=== PATIENT | male | born 1945 | race Caucasian/White ===

== ENCOUNTER 2018-08-19 10:57 | Inpatient (IN) | payer OTHER ==
--- NOTE | 2018-08-19 11:43 | PDOC ---
History of Present Illness - General Chief Complaint: CVA/TIA Stated Complaint: RT. SIDE NUMBING Time Seen by Provider: 08/19/18 11:20 History Source: Patient, Family (daughter at bedside) Exam Limitations: No Limitations - History of Present Illness Initial Comments: 08/19/18 12:00 73-year-old male with no significant past medical history followed by Dr. Chen presents brought in by daughter with right arm weakness that occurred around 10 AM. Patient was in his usual state of good health, was at work having coffee when he suddenly dropped his coffee onto himself, noted that his arm was weak and that he was slurring his words. He called his daughter after about 20 minutes, who noted that his speech was muffled and she went to pick him up at work. Currently, patient reporting patient otherwise denies any weakness. He has a mild headache, no vision change/nausea/vomiting. The patient felt weak all over and states both of his legs felt as though they would give out, but denies any unilateral weakness. Denies any chest pain or palpitations, no known history of atrial fibrillation, no other complaints. On review of systems, patient noted some very subtle and mild headache yesterday , but no actual deficits. no recent f/c/vough/v/d. normal PO intake no exertional chest pain/sob. Past History - Past Medical History Allergies/Adverse Reactions: Allergies Allergy/AdvReac Type Severity Reaction Status Date / Time No Known Allergies Allergy Verified 08/19/18 11:20 CVA: No COPD: No CHF: No DVT: No Dementia: No - Immunization History Immunization Up to Date: Yes - Suicide/Smoking/Psychosocial Hx Smoking History: Never smoked Number of Cigarettes Smoked Daily: 0 Hx Alcohol Use: No Drug/Substance Use Hx: No Review of Systems - Review of Systems Constitutional: No: Chills, Fever, Night Sweats HEENTM: No: Recent change in vision Respiratory: No: Cough, Shortness of Breath Cardiac (ROS): No: Chest Pain, Lightheadedness, Syncope ABD/GI: No: Diarrhea, Nausea, Vomiting Neurological: Yes: See HPI, Headache All Other Systems: Reviewed and Negative *Physical Exam - Vital Signs Last Vital Signs Temp Pulse Resp BP Pulse Ox 98.2 F 66 17 118/82 99 08/19/18 11:20 08/19/18 11:20 08/19/18 11:20 08/19/18 11:20 08/19/18 11:20 - Physical Exam Comments: 08/19/18 12:41 Vital signs normal, blood pressure 118 systolic GENERAL: The patient is awake, alert, and fully oriented, in no acute distress. HEAD: Normal with no signs of trauma. EYES: PERRL, EOMI, sclera anicteric, conjunctiva clear with no pallor. ENT: oropharynx clear without exudates. Moist mucous membranes. NECK: Normal range of motion, supple without lymphadenopathy, JVD, or masses. LUNGS: Breath sounds equal, clear to auscultation bilaterally. No wheeze/ crackles. HEART: Regular rate with occasional premature beats, PVCs seen on monitor. Normal S1 and S2 without murmur or rub. ABDOMEN: Soft/nontender/nondistended. BS wnl. No guarding or rebound. No palpable masses. No hepatosplenomegaly. EXTREMITIES: Normal range of motion, no edema. 2+ distal pulses. No cords, erythema, or tenderness. NEUROLOGICAL: See NIHSS PSYCH: Normal mood, normal affect. SKIN: Warm, Dry, no rashes or lesions noted. NIH Stroke Scale - Last Known Well Date/Time & Onset Date Last Known Well: 08/19/18 Time Last Known Well: 10:00 - Initial Evaluation Level of consciousness: Alert Ask patient the month and their age: Answers both correctly Ask patient to open & close eyes; make fist and let go: Obeys both correctly Best gaze (horizontal eye movement): Normal Visual field testing: No visual field loss Facial paresis (Show teeth/raise eyebrows/close eyes tight): Minor paralysis ( flattened nasolabial fold, asymmetry on smiling) Motor Function: Left Arm: Normal Motor Function: Right Arm: Normal (extends arm 90 (or 45) degrees for 10 seconds without drift Motor Function: Left Leg: Normal (extends leg 30 degrees for 5 seconds without drift) Motor Function: Right Leg: Normal (extends leg 30 degrees for 5 seconds without drift) Sensory(Use pinprick test arms,legs,trunk,face/side to side): Normal Best language (Describe picture, name items, read sentences): No Aphasia Dysarthria (read several words): Mild to moderate slurring of words Extinction and Inattention: No abnormality - Total Score NIH Stroke Scale Score: 2 tPA Exclusion Checklist 0-3hr - Relative Exclusion Criteria 0-3h Rapid improvement: Yes Stroke severity too mild: Yes Heart Score/ECG Review #1 ECG reviewed & interpreted by me at: 12:16 General ECG Interpretation: Sinus Rhythm (with occasional PVCs noted), Normal Rate (69), Normal Intervals (qtc 454), No acute ischemic changes Critical Care Time/MDM Note Total Critical Care Time: 60 Critical Care Statement: The care of this patient involved high complexity decision making to prevent further life threatening deterioration of the patient 's condition and/or to evaluate & treat vital organ system(s) failure or risk of failure. - Medical Decision Making Note: 08/19/18 12:43 73-year-old male with no significant past medical history presents with right face, right arm weakness and dysarthria that began abruptly around 10 AM, now essentially resolved with an NIH score of 2 and normal vital signs. Code dumont activated, stat noncontrast head CT showed no acute pathology Case discussed with Dr. Latham of neurology, given rapid improvement and low NIH score with easily comprehensible speech and no extremity motor weakness, will defer intravenous thrombolysis - discussed with patient and daughter, they agree with not proceeding with tpa given risks and he states he is comfortable living with his current speech and functionality. CTA head and neck High-dose aspirin and Lipitor Patient clinically unchanged with NIHSS2 Awaiting stroke admission. 08/19/18 13:25 labs normal, CTA pending. clinically unchanged. Accepted for inpatient stroke bed by Dr. Horvath, admitting for Dr. Chen 08/19/18 14:17 CTA without acute LVO or hd significant stenosis. *DC/Admit/Observation/Transfer Diagnosis at time of Disposition: Cerebrovascular accident (CVA) Qualifiers: CVA mechanism: unspecified Qualified Code(s): I63.9 - Cerebral infarction, unspecified - Discharge Dispostion Condition at time of disposition: Fair Decision to Admit order: Yes - Referrals - Patient Instructions - Post Discharge Activity
[2018-08-19] MEDS ORDERED: ATORVASTATIN CA 80 MG TABLET (FP) PO ONE (11:58)
[2018-08-19] MEDS ORDERED: ASPIRIN 325 MG TABLET PO ONE (11:58)
[2018-08-19 12:02] LABS: BASO % 0.5 % (0-2.0); EOS % 3.9 % (0-4.5); HEMATOCRIT 43.7 % (35.4-49); HEMOGLOBIN 14.6 GM/dL (11.7-16.9); LYMPH % 46.3 % (8-40); MCH 30.2 pg (25.7-33.7); MCHC 33.4 g/dl (32.0-35.9); MEAN CELL VOLUME 90.4 fl (80-96); MEAN PLT VOLUME 12.7 fl (7.5-11.1); MONO % 9.9 % (3.8-10.2); NEUT % 39.4 % (42.8-82.8); PLATELET COUNT 84 K/MM3 (134-434); RBC 4.84 M/mm3 (4.00-5.60); RDW 14.2 % (11.9-15.9)
[2018-08-19 12:10] LABS: INR 0.99 (0.83-1.09); PROTHROMBIN TIME (PATIENT) 11.7 SEC (9.7-13.0)
[2018-08-19] MEDS ORDERED: ASPIRIN 325 MG TABLET ONE (12:27)
[2018-08-19 12:52] LABS: ALBUMIN 3.9 g/dl (3.4-5.0); ALK PHOS 81 U/L (45-117); ANION GAP 6 MMOL/L (8-16); BILIRUBIN,TOTAL 0.6 mg/dL (0.2-1); BLOOD UREA NITROGEN 16 mg/dL (7-18); CALCIUM 9.1 mg/dL (8.5-10.1); CHLORIDE 106 mmol/L (98-107); CHOLESTEROL 265 mg/dL (50-200); CO2 27 mmol/L (21-32); CREATININE 1.1 mg/dL (0.55-1.3); GLUCOSE,RANDOM 91 mg/dL (74-106); HDL CHOLESTEROL 36 mg/dL (40-60); POTASSIUM 4.4 mmol/L (3.5-5.1); SGOT/AST 27 U/L (15-37); SGPT/ALT 37 U/L (13-61); SODIUM 139 mmol/L (136-145); TOT PROT 7.7 g/dl (6.4-8.2); TRIGLYCERIDES 222 mg/dL (0-150)
[2018-08-19 14:33] LABS: URINE APPEARANCE CLEAR; URINE BILIRUBIN NEGATIVE (NEGATIVE); URINE COLOR YELLOW; URINE GLUCOSE (UA) NEGATIVE (NEGATIVE); URINE KETONE NEGATIVE (NEGATIVE); URINE LEUK ESTERASE NEGATIVE (NEGATIVE); URINE NITRITE NEGATIVE (NEGATIVE); URINE PROTEIN NEGATIVE (NEGATIVE); URINE UROBILINOGEN 0.2 mg/dL (0.2-1.0)
[2018-08-19 14:38] LABS: PLATELET ESTIMATE DECREASED
--- NOTE | 2018-08-19 15:10 | CONSULT ---
Consult - text type - Consultation Consultation Note: NEUROLOGY CONSULT GREATLY APPRECIATED: Events reviewed and discussed with ER attending and DIEGO Lazo. Patient examined. This 73 yo RH man lives with daughter and works at a local [employer]. PMHX: obesity, hypercholesterolemia and former nicotine use. Daughter at bedside aiding in translation. Reports 2 days of "throbbing" "dull" pain headache at vertex which persisted this AM. Today he experienced a brief period "unsteadiness" while standing at work and spilled a cup of coffee he was holding in his right hand. In the ED Pt felt "normal" but ER staff was concerned about slurred speech and right facial droop. Denies previous history of frequent headaches, however reports 6 years of vertigo and associated hearing loss. Head CT (reviewed): Essentially normal study. MRI of Brain (reviewed): Minimal microvascular changes. Probably normal for age. Head/Neck CTA (reviewed): no evidence of aneurysm, occlusion, or AVM. Scattered plaques at bifurcation of carotids. TG 222 Cholesterol 265 ALESSANDRA: Bp 118-150/60-80. Obese. Cor reg. no bruit. Neck supple. No scalp tenderness. NEURO: Awake, alert oriented "[facility]." August 19, 2018. TRUMP. Good reversals. CNII-CNXII: EOM's full without nystagmus. Full muse appreciated. No facial. Motor: No drift. Strength normal. Reflexes normal. Plantars silent. Coordination: No FTN dystaxia. Sensation: Normal. Romberg - Gait: Normal including heels, toes. Impression: Essentially normal Neurological exam. Chronic labrynthritis Left cerebral TIA vs. Complicated migraine. Suggest: Check ESR, CRP (R/O temporal arteritis), Glycosylated hemoglobin A1-C Orthostatic BP's Cardiology consultation, telemetry and echocardiogram to r/o embologenic arrhythmia. Statin rx for hypercholesteremia Antiplatelet Rx with ASA unless AFib is found requiring anticoagulation. Neuro f/u as out patient with Headache diary. Thank you very much, Jourdan West MD
--- NOTE | 2018-08-19 15:24 | HP ---
Admitting History and Physical - Primary Care Physician PCP: Cody Chen I - Admission Chief Complaint: came in with right arm weakness and slurred speech History of Present Illness: 73-year-old male with no significant past medical history followed by Dr. Chen presents brought in by daughter with right arm weakness that occurred around 10 AM. Patient was in his usual state of good health, was at work having coffee when he suddenly dropped his coffee onto himself, noted that his arm was weak and that he was slurring his words. He called his daughter after about 20 minutes, who noted that his speech was muffled and she went to pick him up at work. Currently, patient reporting patient otherwise denies any weakness. He has a mild headache, no vision change/nausea/vomiting. The patient felt weak all over and states both of his legs felt as though they would give out, but denies any unilateral weakness. Denies any chest pain or palpitations, no known history of atrial fibrillation, no other complaints. ini ER ct head done no acute infarct History Source: Patient, Family Member - Smoking History Smoking history: Never smoked Aproximately how many cigarettes per day: 0 - Alcohol/Substance Use Hx Alcohol Use: No Home Medications - Allergies Allergies/Adverse Reactions: Allergies Allergy/AdvReac Type Severity Reaction Status Date / Time No Known Allergies Allergy Verified 08/19/18 11:20 Review of Systems - Review of Systems HENT: reports: No Symptoms Neck: reports: No Symptoms Cardiovascular: reports: No Symptoms, Other Respiratory: reports: No Symptoms Physical Examination Vital Signs: Vital Signs Temperature 98.2 F 08/19/18 11:20 Pulse Rate 68 08/19/18 14:57 Respiratory Rate 18 08/19/18 14:57 Blood Pressure 152/83 08/19/18 14:57 O2 Sat by Pulse Oximetry (%) 100 08/19/18 14:57 Constitutional: Yes: Calm Cardiovascular: Yes: Regular Rate and Rhythm, S1, S2 Respiratory: Yes: CTA Bilaterally Gastrointestinal: Yes: Normal Bowel Sounds, Soft Edema: No Neurological: Yes: Other (flattening of nasolabial fold on left motor strenght and sensation in tact) Psychiatric: Yes: Alert, Oriented Labs: CBC, BMP 08/19/18 11:30 08/19/18 11:30 Imaging - Results Cat Scan: Report Reviewed (no acute infarct CTA noted no significant stenosis) Problem List - Problems (1) Cerebrovascular accident (CVA) Assessment/Plan: neuro check telemetry echo cta of neck noted neurology eval lipid panel noted asprin statin PT eval BP monitoring cardiology Code(s): I63.9 - CEREBRAL INFARCTION, UNSPECIFIED Qualifiers: CVA mechanism: unspecified Qualified Code(s): I63.9 - Cerebral infarction, unspecified
[2018-08-19 19:30] VITALS: BMI 35.0
[2018-08-20 05:49] LABS: BASO % 0.3 % (0-2.0); EOS % 6.5 % (0-4.5); HEMATOCRIT 45.2 % (35.4-49); HEMOGLOBIN 15.1 GM/dL (11.7-16.9); LYMPH % 38.6 % (8-40); MCH 29.8 pg (25.7-33.7); MCHC 33.5 g/dl (32.0-35.9); MONO % 9.2 % (3.8-10.2); NEUT % 45.4 % (42.8-82.8); RBC 5.08 M/mm3 (4.00-5.60); RDW 14.1 % (11.9-15.9)
[2018-08-20 06:13] LABS: CHOLESTEROL 233 mg/dL (50-200); HDL CHOLESTEROL 29 mg/dL (40-60); TRIGLYCERIDES 241 mg/dL (0-150)
[2018-08-20 06:25] LABS: ALBUMIN 3.5 g/dl (3.4-5.0); ALK PHOS 83 U/L (45-117); ANION GAP 6 MMOL/L (8-16); BILIRUBIN,TOTAL 0.8 mg/dL (0.2-1); BLOOD UREA NITROGEN 16 mg/dL (7-18); CALCIUM 8.7 mg/dL (8.5-10.1); CHLORIDE 105 mmol/L (98-107); CHOLESTEROL 242 mg/dL (50-200); CO2 27 mmol/L (21-32); GLUCOSE,RANDOM 100 mg/dL (74-106); MAGNESIUM 2.5 mg/dL (1.8-2.4); PHOSPHOROUS 3.8 mg/dL (2.5-4.9); POTASSIUM 4.3 mmol/L (3.5-5.1); SGOT/AST 18 U/L (15-37); SGPT/ALT 38 U/L (13-61); SODIUM 138 mmol/L (136-145); TOT PROT 7.4 g/dl (6.4-8.2)
--- NOTE | 2018-08-20 08:06 | PN ---
Progress Note, Physician - Current Medication List Current Medications: Active Medications Artificial Tears (Artificial Tears) 1 drop OU BID PRN PRN Reason: dry eyes/ red irritated eyes Aspirin (Asa -) 81 mg PO DAILY BRITTANY Atorvastatin Calcium (Lipitor -) 80 mg PO HS BRITTANY Influenza Virus Vaccine Quadrival (Flulaval Quad [id number]) 60 mcg IM .ONCE ONE Stop: 08/20/18 09:31 Pneumococcal 13-Valent Conj Vacc (Prevnar 13 Syringe -) 0.5 ml IM .ONCE ONE Stop: 08/20/18 09:31 - Objective Vital Signs: Vital Signs Temperature 97.2 F L 08/20/18 06:00 Pulse Rate 72 08/20/18 06:00 Respiratory Rate 20 08/20/18 06:00 Blood Pressure 142/72 08/20/18 06:00 O2 Sat by Pulse Oximetry (%) 96 08/19/18 21:00 Cardiovascular: Yes: Regular Rate and Rhythm Respiratory: Yes: Regular, CTA Bilaterally Gastrointestinal: Yes: Normal Bowel Sounds, Soft Neurological: Yes: Alert, Oriented. No: Facial Droop Labs: CBC, BMP 08/20/18 05:30 08/20/18 05:30 INR, PTT INR 0.99 (0.83-1.09) 08/19/18 11:30 Problem List - Problems (1) Cerebrovascular accident (CVA) Assessment/Plan: neuro check telemetry echo cta of neck noted---calcified plaque cta brain no aneurysm mri no evidence of new cva--old---r/o aneurysm neurology eval lipid panel noted asprin statin PT eval BP monitoring cardiology Code(s): I63.9 - CEREBRAL INFARCTION, UNSPECIFIED Qualifiers: CVA mechanism: unspecified Qualified Code(s): I63.9 - Cerebral infarction, unspecified (2) Headache Assessment/Plan: -neuro consult noted--maybe migraine Code(s): R51 - HEADACHE (3) Cerebral aneurysm Assessment/Plan: not seen on cta NS consult Code(s): I67.1 - CEREBRAL ANEURYSM, NONRUPTURED
--- NOTE | 2018-08-20 09:28 | CON.CARD ---
Consult Consult Specialty:: Cardiology Referred by:: Dr. Beasley/Jennifer Reason for Consultation:: Possible TIA - History of Present Illness Chief Complaint: Unsteady gait, weakness History of Present Illness: 73 year old man with pmh HLD, obesity, former smoker admitted with headache, transient dysarthria and generalized weakness. Seen by neurology felt to be a possibel L sided TIA vs complicated migraine as neuro exam was normal and imaging did not show an acute CVA. pt was seen and examined today in nad. states he is back to his normal self. walked in hallway this am without limitation. denies any chest pain, sob, or palpitations. no syncope or near syncope. no pnd , orthopnea, or LE edema. - History Source History Provided By: Patient, Medical Record Limitations to Obtaining History: Language Barrier - Past Medical History Cardio/Vascular: Yes: Hyperlipdemia - Alcohol/Substance Use Hx Alcohol Use: No - Smoking History Smoking history: Former smoker Have you smoked in the past 12 months: No Aproximately how many cigarettes per day: 0 If you are a former smoker, when did you quit?: 35 years ago - Social History ADL: Independent History of Recent Travel: No Home Medications - Allergies Allergies/Adverse Reactions: Allergies Allergy/AdvReac Type Severity Reaction Status Date / Time No Known Allergies Allergy Verified 08/19/18 11:20 Family Disease History - Family Disease History Family History: Denies Review of Systems - Review of Systems Constitutional: reports: Weakness. denies: No Symptoms, Chills, Diaphoresis, Fever, Lethargy, Loss of Appetite, Malaise, Night Sweats, Unintentional Wgt. Loss, Other Eyes: denies: No Symptoms, Blind Spots, Blurred Vision, Double Vision, Eye Pain , Floaters, Photophobia, Recent Change in Vision, Other HENT: denies: No Symptoms, Difficult Swallowing, Ear Discharge, Ear Pain, Epistaxis, Gingival Bleeding, Hearing Loss, Mouth Swelling, Nasal Congestion, Ocular Prosthesis, Throat Pain, Toothache, Ringing in Ears, Other Neck: denies: No Symptoms, Decreased ROM, Lumps, Pain on Movement, Stiffness, Swollen Glands, Tenderness, Other Cardiovascular: denies: No Symptoms, Chest Pain, Edema, Palpitations, Shortness of Breath, Other Respiratory: denies: No Symptoms, Cough, Exercise Intolerance, Hemoptysis, Orthopnea, PND, Snoring, SOB, SOB on Exertion, Wheezing, Other Gastrointestinal: denies: No Symptoms, Abdominal Pain, Bloating, Constipation, Diarrhea, Dysphagia, Indigestion, Melena, Nausea, Rectal Bleeding, Vomiting, Vomiting Blood, Other Genitourinary: denies: No Symptoms, Burning, Discharge, Dysuria, Flank Pain, Frequency, Hematuria, Incontinence, Lesions, Menses, Pain, Testicular Mass, Testicular Pain, Testicular Swelling, Urgency, Vaginal Bleeding, Other Breasts: denies: No Symptoms Reported, See HPI, Breast Implants, Discharge from Nipple, Lumps, Pain, Skin Changes, Other Musculoskeletal: denies: No Symptoms, Back Pain, Crepitus, Decreased ROM, Extremity Pain, Joint Pain, Joint Swelling, Muscle Pain, Muscle Cramps, Muscle Weakness, Other Integumentary: denies: No Symptoms, Blister, Bruising, Change in Color, Eczema, Erythema, Incision, Lesions, Lump, Pallor, Pruritis, Rash, Wound, Other Neurological: reports: Change in Speech, Headache, Weakness. denies: No Symptoms, Change in LOC, Confusion, Dizziness, Incoordination, Numbness, Parasthesia, Pre-Existing Deficit, Seizure, Syncope, Tremors, Unsteady Gait, Other Endocrine: denies: No Symptoms, Excessive Sweating, Flushing, Increased Hunger, Increased Thirst, Intolerance to Cold, Intolerance to Heat, Unexplained Weight Gain, Unexplained Weight Loss, Other Hematology/Lymphatic: denies: No Symptoms, Easily Bruised, Excessive Bleeding, Swollen Glands, Other Psychiatric: denies: No Symptoms, Altered Sleep Pattern, Anxiety, Depression, Hallucinations, Panic, Paranoia, Suicidal, Other - Risk Factors Known Risk Factors: Yes: Hypercholesterolemia, Smoking Vital Signs: Vital Signs Temperature 97.2 F L 08/20/18 06:00 Pulse Rate 72 08/20/18 06:00 Respiratory Rate 20 08/20/18 06:00 Blood Pressure 142/72 08/20/18 06:00 O2 Sat by Pulse Oximetry (%) 96 08/19/18 21:00 Constitutional: Yes: Well Nourished, No Distress, Calm Eyes: Yes: WNL, Conjunctiva Clear, EOM Intact HENT: Yes: WNL, Atraumatic, Normocephalic Neck: Yes: WNL, Supple, Trachea Midline Respiratory: Yes: WNL, Regular, CTA Bilaterally. No: Rales, Rhonchi, SOB, Wheezes Gastrointestinal: Yes: WNL, Normal Bowel Sounds, Soft. No: Distention, Tenderness Renal/: Yes: WNL Cardiovascular: Yes: Regular Rate and Rhythm, Other (extrasystoles heard). No: Bradycardia, Tachycardia, Pulse Irregular, Gallop, Rub, Varicosities JVD: No Carotid Bruit: No PMI: Non-Displaced Heart Sounds: Yes: S1, S2. No: Split S2, S3, S4, Clicks, Gallop, Rub, Bruit Murmur: No: Systolic Murmur Musculoskeletal: Yes: WNL Extremities: Yes: WNL Edema: No Peripheral Pulses WNL: Yes Peripheral Pulses: 2+ Left Doralis Pedis, 2+ Right Dorsalis Pedis Neurological: Yes: Alert, Oriented Psychiatric: Yes: Alert, Oriented - Other Data Labs, Other Data: CBC, BMP 08/20/18 05:30 08/20/18 05:30 INR, PTT INR 0.99 (0.83-1.09) 08/19/18 11:30 Troponin, BNP 08/19/18 08/20/18 11:30 05:30 Troponin I < 0.02 < 0.02 Troponin, BNP 08/19/18 08/20/18 11:30 05:30 Troponin I < 0.02 < 0.02 nsr 69bpm with pvcs Echo: Pending Imaging - Results Chest X-ray: Report Reviewed, Image Reviewed EKG: Report Reviewed, Image Reviewed Other: Report Reviewed, Image Reviewed (tele-nsr with frequent pvcs, no afib/ aflutter overnight) Assessment/Plan 73 year old man with pmh HLD, obesity, former smoker admitted with headache, transient dysarthria and generalized weakness. Seen by neurology felt to be a possibel L sided TIA vs complicated migraine as neuro exam was normal and imaging did not show an acute CVA. states he is back to his normal self. walked in hallway this am without limitation. denies any chest pain, sob, or palpitations. no syncope or near syncope. no pnd , orthopnea, or LE edema. Neuro-transient weakness, headaches -no acute event identified based on neuro evaluation and imaging, possible TIA vs complicated migraine -on ASA and statin -no afib or aflutter on tele overnight -frequent PVCs noted by have been asymptomatic -fup echo that was done today -recc longer term event monitoring as outpatient if TIA or CVA suspected PVCs-appear asymptomatic -recc further event monitoring as outpatient to evaluate PVC burden -cardiac enzymes wnl, electrolytes wnl -would ensure TFTs wnl -Recc outpatient fup with further event monitoring and depending on results consider bblocker for PVC suppression.
[2018-08-20] MEDS ORDERED: ARTIFICIAL TEARS (POLYVINYL ALCOHOL) OPTH DROPS OU PRN (10:00)
[2018-08-20] MEDS: ASPIRIN 81 MG CHEWABLE TABLETS PO SCH (10:01)
[2018-08-20 10:05] LABS: PLATELET ESTIMATE DECREASED
[2018-08-20 10:52] LABS: MEAN PLT VOLUME 11.4 fl (7.5-11.1); PLATELET COUNT 77 K/MM3 (134-434)
[2018-08-20] MEDS ORDERED: FLU VACCINE QUAD 60 MCG/0.5 ML (MDV 18-19) IM ONE (12:00)
[2018-08-20] MEDS ORDERED: PNEUMOC 13-VAL CONJ-DIP CRM/PF 0.5 ML DISP.SYRIN IM ONE (12:00)
--- NOTE | 2018-08-20 12:04 | ECHO ---
Version: 1 Name: BRAYDEN CAICEDO Exam: Adult Echocardiogram Study Date: 08/20/2018, 8:57 AM Age: 73 Years MMode/2D Measurements & Calculations IVSd: 0.76 cm LVIDs: 3.0 cm LVIDd: 4.7 cm LVPWd: 1.12 cm LVOT diam: 2.05 cm Ao root diam: 3.2 cm LA dimension: 3.0 cm Doppler Measurements & Calculations MV E max storm: 59.7 cm/sec Med E/e': 12.4 MV A max storm: 91.8 cm/sec Med Peak E' Storm: 4.8 cm/sec MV E/A: 0.65 Lat E/e': 7.2 Lat Peak E' Storm: 8.3 cm/sec Ao max P.9 mmHg CHON(I,D): 3.0 cm Ao mean P.4 mmHg LV V1 mean: 83.4 cm/sec Ao V2 max: 149.3 cm/sec LV V1 mean P.2 mmHg Left Ventricle The left ventricular size, thickness and function are normal. Right Ventricle The right ventricle is normal in size and function. Atria Normal left and right atrial size and function. Mitral Valve The mitral valve is grossly normal. Tricuspid Valve The tricuspid valve is not well visualized, but is grossly normal. Aortic Valve The aortic valve is normal in structure and function. Pulmonic Valve The pulmonic valve is not well seen, but is grossly normal. Great Vessels The aortic root is normal size. Pericardium/Pleura There is no pericardial effusion. Summary Statements The left ventricular size, thickness and function are normal The right ventricle is normal in size and function. Normal left and right atrial size and function. The mitral valve is grossly normal. The tricuspid valve is not well visualized, but is grossly normal. The aortic valve is normal in structure and function. Abnormal diastolic compliance. EF 65%. MD Bill Lowry 08/20/2018, 11:03 AM Ordering Physician: Yuliet Beasley Performed By: Deyanira Walters
--- NOTE | 2018-08-20 14:21 | EKG ---
Test Reason : Blood Pressure : / mmHG Vent. Rate : 069 BPM Atrial Rate : 069 BPM P-R Int : 188 ms QRS Dur : 088 ms QT Int : 424 ms P-R-T Axes : 062 032 039 degrees QTc Int : 454 ms SINUS RHYTHM WITH FREQUENT PREMATURE VENTRICULAR COMPLEXES OTHERWISE NORMAL ECG WHEN COMPARED WITH ECG OF 06-JAN-2014 20:08, PREMATURE VENTRICULAR COMPLEXES ARE NOW PRESENT Confirmed by MD ASHANTI, HILLARY ([id number]) on 08/20/2018 2:20:56 PM Referred By: Confirmed By:HILLARY BURRELL MD
[2018-08-20] MEDS ORDERED: PT OWN MED DRAWER 7, Y5N ONE (16:32)
--- NOTE | 2018-08-20 16:51 | CONSULT ---
Consult - text type - Consultation Consultation Note: NEUROSURGERY CONSULTATION Ajit Brown is a 73 year old Latin male who presented to the [facility] ER with a several day history of headaches and vague symptoms of weakness in his Right arm. He was evaluated for CVA and no acute ischemia was identified. MRA suggests possible Right MCA aneurysm. CTA does not reveal any intracranial aneurysm. Patient is currently neurologically nonfocal. He is awake and alert x 3, follows complex commands and has full strength in all motor groups. No pronator drift or extinction to double simultaneous stimulation. No Photophobia or nuchal rigidity. Given the presentation, aneurysmal subarachnoid hemorrhage seems unlikely. CTA does not demonstrate any aneurysm. No acute Neurosurgical intervention indicated. Agree with Dr. West's plan of evaluation. If symptoms return, patient may benefit from being evaluated by catheter angiography.
[2018-08-20] MEDS ORDERED: ATORVASTATIN CA 80 MG TABLET (FP) PO SCH (22:00)
[2018-08-21 06:02] VITALS: TEMP 97.9
[2018-08-21 09:36] VITALS: BP 138/68; PULSE 83
[2018-08-21] MEDS: ASPIRIN 81 MG CHEWABLE TABLETS PO SCH (09:37)
[2018-08-21] MEDS ORDERED: metoPROLOL SUCCINATE 25 MG TAB.SR.24H (FP) PO SCH (10:00)
--- NOTE | 2018-08-21 10:37 | DS ---
Physical Examination Vital Signs: Vital Signs Temperature 97.9 F 08/21/18 09:35 Pulse Rate 83 08/21/18 09:35 Respiratory Rate 20 08/21/18 06:00 Blood Pressure 138/68 08/21/18 09:35 O2 Sat by Pulse Oximetry (%) 99 08/20/18 21:00 Cardiovascular: Yes: S1, S2 Respiratory: Yes: Regular, CTA Bilaterally Gastrointestinal: Yes: Normal Bowel Sounds, Soft Neurological: Yes: Alert, Oriented Labs: CBC, BMP 08/20/18 05:30 08/20/18 05:30 Discharge Summary Reason For Visit: CVA Current Active Problems Cerebral aneurysm (Acute) Cerebrovascular accident (CVA) (Acute) Headache (Acute) Hospital Course: - Problems (1) Cerebrovascular accident (CVA) Assessment/Plan: cta of neck noted---calcified plaque cta brain no aneurysm mri no evidence of new cva--old---r/o aneurysm neurology eval lipid panel noted asprin statin PT eval noted BP monitoring neuro mpression: Essentially normal Neurological exam. Chronic labrynthritis Left cerebral TIA vs. Complicated migraine. Suggest: Check ESR, CRP (R/O temporal arteritis), Glycosylated hemoglobin A1-C Orthostatic BP's Cardiology consultation, telemetry and echocardiogram to r/o embologenic arrhythmia. Statin rx for hypercholesteremia Antiplatelet Rx with ASA unless AFib is found requiring anticoagulation. Neuro f/u as out patient with Headache diary. Code(s): I63.9 - CEREBRAL INFARCTION, UNSPECIFIED Qualifiers: CVA mechanism: unspecified Qualified Code(s): I63.9 - Cerebral infarction, unspecified (2) Headache Assessment/Plan: -neuro consult noted--maybe migraine Code(s): R51 - HEADACHE (3) Cerebral aneurysm Assessment/Plan: not seen on cta NS consult noted--no intervention Code(s): I67.1 - CEREBRAL ANEURYSM, NONRUPTURED Condition: Good - Instructions Disposition: HOME - Home Medications Comprehensive Discharge Medication List: Ambulatory Orders Aspirin [ASA -] 81 mg PO DAILY tab.chew 08/21/18 Atorvastatin Ca [Lipitor] 80 mg PO HS #30 tablet 08/21/18 Metoprolol Succinate [Toprol XL -] 25 mg PO DAILY #30 tab.sr.24h 08/21/18 Polyvinyl Alcohol [Artificial Tears] 1 drop OU BID PRN drops 08/21/18
== END 2018-08-21 12:25 | disposition home or self-care (01) | DRG 69 ==
LOC: JER 10:57 → JERBED 13:26 → J4S 18:35
PROVIDERS: ADMIT Student in an Organized Health Care Education/Training Program; ATTEND Student in an Organized Health Care Education/Training Program
DX: G45.9 Transient cerebral ischemic attack, unspecified (principal); G43.909 Migraine, unspecified, not intractable, without status migrainosus; H83.09 Labyrinthitis, unspecified ear; Z87.891 Personal history of nicotine dependence; E66.9 Obesity, unspecified; Z68.35 Body mass index [BMI] 35.0-35.9, adult; E78.5 Hyperlipidemia, unspecified
CPT/HCPCS: 36415; 70450-TC; 70496-TC; 70498-TC; 70551-TC; 71045-TC-FY; 80053; 80061; 81003; 82465; 82550; 82553; 83036; 83718; 83721; 83735; 84100; 84478; 84484; 85025; 85027; 85610; 85651; 85730; 86140; 86850; 86900; 86901; 90670; 90688; 93005; 93010; 93306-TC; 97116-GP; 97161-GP; 99285-25; G0008; G0009

== ENCOUNTER 2020-04-05 14:19 | Inpatient (IN) | payer OTHER ==
[2020-04-05 16:02] LABS: BASO % 2.9 % (0-2.0); EOS % 4.8 % (0-4.5); HEMATOCRIT 42.9 % (35.4-49); HEMOGLOBIN 14.1 GM/dL (11.7-16.9); LYMPH % 21.1 % (8-40); MCH 29.7 pg (25.7-33.7); MCHC 32.9 g/dl (32.0-35.9); MEAN CELL VOLUME 90.3 fl (80-96); MEAN PLT VOLUME 12.1 fl (7.5-11.1); MONO % 11.1 % (3.8-10.2); NEUT % 60.1 % (42.8-82.8); PLATELET COUNT 93 K/MM3 (134-434); RBC 4.74 M/mm3 (4.00-5.60); RDW 14.8 % (11.9-15.9); WHITE BLOOD COUNT 8.4 K/mm3 (4.0-10.0)
[2020-04-05 16:06] LABS: CHLORIDE 106 mmol/L (98-107); SODIUM 140 mmol/L (136-145)
[2020-04-05 16:08] LABS: ALBUMIN 3.5 g/dl (3.4-5.0); ANION GAP 5 MMOL/L (8-16); BLOOD UREA NITROGEN 12.9 mg/dL (7-18); CALCIUM 8.6 mg/dL (8.5-10.1); CO2 30 mmol/L (21-32); MAGNESIUM 2.2 mg/dL (1.8-2.4)
[2020-04-05 16:09] LABS: GLUCOSE,RANDOM 86 mg/dL (74-106)
[2020-04-05 16:11] LABS: SGOT/AST 49 U/L (15-37); SGPT/ALT 41 U/L (13-61)
[2020-04-05 16:12] LABS: PHOSPHOROUS 3.4 mg/dL (2.5-4.9)
[2020-04-05 16:13] LABS: BILIRUBIN,TOTAL 0.6 mg/dL (0.2-1); TOT PROT 7.5 g/dl (6.4-8.2)
[2020-04-05 16:14] LABS: ALK PHOS 75 U/L (45-117)
[2020-04-05] MEDS ORDERED: ASPIRIN 81 MG CHEWABLE TABLETS PO ONE (17:02)
[2020-04-05 17:11] LABS: INR 0.99 (0.83-1.09); PROTHROMBIN TIME (PATIENT) 12.2 SEC (9.7-13.0)
[2020-04-05 17:13] LABS: ACTIVATED PTT 27.8 SECONDS (25.2-36.5)
[2020-04-05] MEDS ORDERED: ASPIRIN 81 MG CHEWABLE TABLETS ONE (17:18)
[2020-04-05 17:22] LABS: PLATELET ESTIMATE DECREASED
[2020-04-06 04:18] LABS: URINE APPEARANCE CLOUDY; URINE BILIRUBIN NEGATIVE (NEGATIVE); URINE COLOR YELLOW; URINE GLUCOSE (UA) NEGATIVE (NEGATIVE); URINE KETONE NEGATIVE (NEGATIVE); URINE LEUK ESTERASE NEGATIVE (NEGATIVE); URINE NITRITE NEGATIVE (NEGATIVE); URINE PROTEIN NEGATIVE (NEGATIVE); URINE UROBILINOGEN 0.2 mg/dL (0.2-1.0)
[2020-04-06 08:34] LABS: HEMOGLOBIN 14.4 GM/dL (11.7-16.9); MCH 29.8 pg (25.7-33.7); MCHC 32.8 g/dl (32.0-35.9); MEAN CELL VOLUME 90.9 fl (80-96); MEAN PLT VOLUME 12.7 fl (7.5-11.1); PLATELET COUNT 88 K/MM3 (134-434); RBC 4.84 M/mm3 (4.00-5.60); RDW 14.7 % (11.9-15.9); WHITE BLOOD COUNT 6.3 K/mm3 (4.0-10.0)
[2020-04-06 08:48] LABS: BLOOD UREA NITROGEN 11.7 mg/dL (7-18); CALCIUM 8.9 mg/dL (8.5-10.1)
[2020-04-06 08:52] LABS: CREATININE 1.1 mg/dL (0.55-1.3)
[2020-04-06] MEDS ORDERED: ENOXAPARIN NA (PORCINE) 40 MG/0.4 ML DISP.SYRIN SQ ONE (10:05)
[2020-04-06] MEDS: ENOXAPARIN NA (PORCINE) 40 MG/0.4 ML DISP.SYRIN SQ SCH (10:10)
[2020-04-06] MEDS ORDERED: ARTIFICIAL TEARS (POLYVINYL ALCOHOL) OPTH DROPS OU PRN (10:31)
[2020-04-06] MEDS ORDERED: metoPROLOL SUCCINATE 25 MG TAB.SR.24H (FP) ONE (11:27)
[2020-04-06] MEDS: metoPROLOL SUCCINATE 25 MG TAB.SR.24H (FP) PO SCH (11:33)
[2020-04-06] MEDS ORDERED: CLOPIDOGREL BISULFATE 75 MG TABLET (FP) ONE (12:06)
[2020-04-06] MEDS: CLOPIDOGREL BISULFATE 75 MG TABLET (FP) PO SCH (12:09)
[2020-04-06] MEDS ORDERED: amLODIPine BESYLATE 5 MG TABLET (FP) ONE (13:46)
[2020-04-06] MEDS: amLODIPine BESYLATE 5 MG TABLET (FP) PO SCH (13:50)
[2020-04-06] MEDS ORDERED: ATORVASTATIN CA 80 MG TABLET (FP) PO SCH (22:00)
[2020-04-06] MEDS ORDERED: ATORVASTATIN CA 80 MG TABLET (FP) ONE (22:31)
[2020-04-07 04:57] VITALS: BMI 35.9
[2020-04-07] MEDS ORDERED: ASPIRIN 81 MG CHEWABLE TABLETS PO SCH (10:00)
[2020-04-07] MEDS: amLODIPine BESYLATE 5 MG TABLET (FP) PO SCH (10:22)
[2020-04-07] MEDS: metoPROLOL SUCCINATE 25 MG TAB.SR.24H (FP) PO SCH (10:22)
[2020-04-07] MEDS: ENOXAPARIN NA (PORCINE) 40 MG/0.4 ML DISP.SYRIN SQ SCH (10:22)
[2020-04-07] MEDS: CLOPIDOGREL BISULFATE 75 MG TABLET (FP) PO SCH (10:22)
[2020-04-07 14:03] VITALS: BP 124/62; PULSE 67; TEMP 97.9
== END 2020-04-07 17:00 | disposition home or self-care (01) | DRG 66 ==
LOC: JER 14:19 → JERBED 18:42 → J4S 04-07 01:58
PROVIDERS: ADMIT Internal Medicine; ATTEND Internal Medicine
DX: I63.9 Cerebral infarction, unspecified (principal); E78.5 Hyperlipidemia, unspecified; Z87.891 Personal history of nicotine dependence; Z86.73 Personal history of transient ischemic attack (TIA), and cerebral infarction without residual deficits; R42 Dizziness and giddiness; I10 Essential (primary) hypertension
CPT/HCPCS: 36415; 70450-TC; 70551-TC; 71045-TC-FY; 80048; 80053; 80061; 81003; 83721; 83735; 84100; 84484; 85025; 85027; 85610; 85730; 87086; 93005; 93010; 93306-TC; 93880-TC; 97116-GP; 97161-GP; 99285-25; C9803; U0003